=== PATIENT | female | born 1980 | race Two or more races ===

== ENCOUNTER 2018-10-09 10:09 | Inpatient (IN) | payer MEDICAID ==
[2018-09-24 10:05] LABS: APPEARANCE,URINE CLEAR; BILIRUBIN, URINE NEGATIVE (NEGATIVE); COLOR,URINE PALE YELLOW; GLUCOSE, URINE (UA) NEGATIVE (NEGATIVE); KETONES,URINE NEGATIVE (NEGATIVE); LEUKOCYTE ESTERASE ,URINE NEGATIVE (NEGATIVE); NITRITE,URINE NEGATIVE (NEGATIVE); PH,URINE 6.5 (4.5-8.0); PROTEIN,URINE NEGATIVE (NEGATIVE); UROBILINOGEN,URINE NORMAL MG/DL (0.0-1.0)
[2018-09-24 10:12] LABS: BASOPHILS % (AUTO) 2.2 % (0.0-2.0); EOSINOPHILS % (AUTO) 3.1 % (0.0-3.0); HEMATOCRIT 39.8 % (37.0-47.0); LYMPHOCYTES % (AUTO) 31.1 % (20.0-45.0); MEAN CORPUSCULAR VOLUME 92 FL (80-99); MONOCYTES % (AUTO) 18.8 % (1.0-10.0); NEUTROPHILS % (AUTO) 44.9 % (45.0-75.0); PLATELET COUNT 243 K/UL (150-450); RED BLOOD COUNT 4.32 M/UL (4.20-5.40); RED CELL DISTRIBUTION WIDTH 12.8 % (11.6-14.8); WHITE BLOOD COUNT 3.8 K/UL (4.8-10.8)
[2018-09-24 10:24] LABS: ANION GAP 6 mmol/L (5-15); BLOOD UREA NITROGEN 9 mg/dL (7-18); CALCIUM 9.3 MG/DL (8.5-10.1); CARBON DIOXIDE 29 MMOL/L (21-32); CHLORIDE 104 MMOL/L (98-107); CREATININE 0.8 MG/DL (0.55-1.30); POTASSIUM 3.7 MMOL/L (3.5-5.1); SODIUM 139 MMOL/L (136-145)
[2018-09-24 10:27] LABS: INR 1.2 (0.9-1.1)
--- NOTE | 2018-10-08 13:45 | Pre-op HX & Phy Repo 2 SIG ---
DATE OF ADMISSION: 10/09/2018 SCHEDULED FOR SURGERY: October 09, 2018. 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 The patient was initially seen in March 2018 with one month history of a left breast mass. Examination at that time revealed a large mass at 12 o'clock about 3 cm above the nipple and palpable left axillary lymph node. Imaging studies revealed three lesions in the left breast and core biopsy of all three revealed poorly differentiated invasive ductal carcinoma. Core biopsy of the left axillary lymph node revealed metastatic carcinoma. The patient was treated with neoadjuvant chemotherapy with her last treatment September 08, 2018 and is going to undergo mastectomy. Genetic testing has been negative. PAST MEDICAL HISTORY: MEDICATIONS: Compazine, Zofran, stool softeners. ALLERGIES: None. OPERATIONS: None. REVIEW OF SYSTEMS: para 3, 3; having regular menstrual periods PHYSICAL EXAMINATION: GENERAL: The patient is well developed and well nourished. VITAL SIGNS: The patient is 5 feet 3 inches, 167 pounds. HEENT: Within normal limits. LUNGS: Clear. HEART: Regular rhythm. BREASTS: Exam reveals right breast unremarkable. Left breast has a large mass from 10 o' clock to 2 o' clock and there was no longer any palpable axillary lymphadenopathy. ABDOMEN: Soft. PELVIC AND RECTAL: Per primary care physician. EXTREMITIES: Without edema. NEUROLOGIC: Physiologic. IMPRESSION: Multicentric invasive ductal carcinoma, left breast, metastatic to left axillary lymph node. PLAN: Left modified radical mastectomy. DISCUSSION: I have had a full discussion with the patient regarding the nature of her condition, the nature of the surgery, indications, alternatives, options, and risks including bleeding, infection, injury to adjacent structures or organs, neuritis or neuralgia, potential for delayed reconstruction, need for additional treatments based on final pathology, etc. The patient understands and agrees to proceed. Levi Meza M.D. DR: KINZA JOB#: [id number] CC: TERESA
[2018-10-09] VITALS (13 sets, daily range): BP systolic 89–128; BP diastolic 46–71
[~2018-10-09] VITALS: Ht 160 cm; Wt 68.0 kg
[~2018-10-09 10:09] MED LIST: NKM
[2018-10-09] MEDS ORDERED: fentaNYL 100 mcg/2 mL IV ONE (10:50)
[2018-10-09] MEDS ORDERED: Midazolam 2mg/2ml Inj ONE (10:50)
[2018-10-09] MEDS ORDERED: Lidocaine 1% MPF 10mg/ml 5ml ONE (10:53)
[2018-10-09] MEDS ORDERED: Propofol 200mg/20ml IV ONE (10:53)
[2018-10-09] MEDS ORDERED: Bacitracin 50000 Units Vial ONE (11:45)
[2018-10-09] MEDS ORDERED: Lidocaine 1% 10mg/ml/Epi 0.005mg/ml 30ml vial INJ ONE (11:45)
[2018-10-09] MEDS ORDERED: NeoSporin Gu Irrig 1ml Amp IRRIG ONE (11:45)
[2018-10-09] MEDS ORDERED: Bupivacaine w/Epi 0.5% 30ml Vial INJ ONE (11:45)
--- NOTE | 2018-10-09 11:47 | Pre-Procedure Note/Attestation ---
Pre-Procedure Note/Attestation Complete Prior to Procedure Planned Procedure: left Procedure Narrative: left modified radical mastectomy Indications for Procedure Pre-Operative Diagnosis: multicentric invasive ductal carcinoma left breast Attestation I attest that I discussed the nature of the procedure; its benefits; risks and complications; and alternatives (and the risks and benefits of such alternatives ), prior to the procedure, with the patient (or the patient's legal customer relations representative). I attest that, if there was a reasonable possibility of needing a blood transfusion, the patient (or the patient's legal customer relations representative) was given the [facility] standardized written summary, pursuant to the [place] Blood Safety Act ([place] Health and Safety Code # 1645, as amended). I attest that I re-evaluated the patient just prior to the surgery and that there has been no change in the patient's H&P, except as documented below: none Levi Meza MD Oct 09, 2018 11:47
[2018-10-09] MEDS ORDERED: Sterile Water Irrig 1000ml IRRIG ONE (12:00)
[2018-10-09] MEDS ORDERED: LR 1000ml ONE (12:00)
[2018-10-09] MEDS ORDERED: NS Irrig 1000ml ONE (12:00)
[2018-10-09] MEDS ORDERED: Morphine Sulfate 10mg/ml Inj ONE (12:47)
[2018-10-09] MEDS ORDERED: Sodium Chloride 10ml vial INJ ONE (12:47)
[2018-10-09] MEDS ORDERED: Ketorolac 30mg Inj ONE (12:47)
[2018-10-09] MEDS ORDERED: Hydromorphone 0.5mg/0.5ml inj IVP PRN (13:00)
[2018-10-09] MEDS ORDERED: Midazolam 2mg/2ml Inj IVP PRN (13:00)
[2018-10-09] MEDS ORDERED: Meperidine 50mg/ml Inj(FOR RIGORS ONLY) IV PRN (13:00)
[2018-10-09] MEDS ORDERED: Metoclopramide 10mg/2ml Inj IVP PRN (13:00)
[2018-10-09] MEDS ORDERED: LR 1000ml 1,000 ML IVLG SCH (13:00)
[2018-10-09] MEDS ORDERED: DiphenhydrAMINE 50mg/ml Inj IVP PRN (13:00)
[2018-10-09] MEDS ORDERED: Ketorolac 30mg Inj IV PRN (13:00)
--- NOTE | 2018-10-09 13:00 | Anethesia Preoperative Eval ---
Anesthesia Pre-op PMH/ROS General Date of Evaluation: Oct 09, 2018 Time of Evaluation: 11:50 Anesthesiologist: Hans ASA Score: ASA 2 Mallampati Score Class I : Soft palate, uvula, fauces, pillars visible Class II: Soft palate, uvula, fauces visible Class III: Soft palate, base of uvula visible Class IV: Only hard plate visible Mallampati Classification: Class II Surgeon: Susana Diagnosis: L breast CA Surgical Procedure: L modified radical mastectomy Anesthesia History: none Family History: no anesthesia problems Allergies: Coded Allergies: No Known Allergies (Unverified , 10/09/18) Patient NPO?: Yes NPO Date: Oct 08, 2018 NPO Time: 0 Past Medical History Cardiovascular: Denies: HTN, CAD, [place], valve dz, arrhythmia, other Pulmonary: Denies: asthma, COPD, LISS, other Gastrointestinal/Genitourinary: Reports: GERD - mild; Denies: CRI, ESRD, other Neurologic/Psychiatric: Reports: depression/anxiety; Denies: dementia, CVA, TIA, other Endocrine: Denies: DM, hypothyroidism, steroids, other HEENT: Denies: cataract (L), cataract (R), glaucoma, EYAK (L), EYAK (R), other Hematology/Immune: Reports: anemia - mild; Denies: DVT, bleeding disorder, other Musculoskeletal/Integumentary: Denies: OA, RA, DJD, DDD, edema, other PMH Narrative: as above PSxH Narrative: none Anesthesia Pre-op Phys. Exam Physician Exam Last Vital Signs Date Time Temp Pulse Resp B/P (MAP) Pulse Ox O2 Delivery O2 Flow Rate FiO2 10/09/18 10:45 Room Air 10/09/18 10:33 97.2 70 18 111/71 (84) 100 Constitutional: NAD Neurologic: CN 2-12 intact Cardiovascular: RRR, no M/R/G Respiratory: CTA Airway Exam Mallampati Score: Class II Neck: flexible ROM: full Teeth: intact Dentures: no upper, no lower Anesthesia Pre-op A/P Labs see chart Urine Test Test 10/09/18 10:20 Urine HCG, Qualitative Negative (NEGATIVE) Studies Pre-op Studies: EKG - NSR Risk Assessment & Plan Assessment: ASA 2 Plan: GA with LMA PONV preventioo Status Change Before Surgery: No Pre-Antibiotics Drug: Anef 1gr. Given Within 1 Hr of Incision: Yes Time Given: 12:15 Arsen Maxwell MD Oct 09, 2018 13:00
[2018-10-09] MEDS ORDERED: Acetaminophen (Non formulary) 100 ML IV SCH (13:30)
--- NOTE | 2018-10-09 14:08 | Immediate Post-Op Evaluation ---
Immediate Post-Op Evalulation Immediate Post-Op Evalulation Procedure: L breast mastectomy with axillary l/n disection Date of Evaluation: Oct 09, 2018 Time of Evaluation: 14:07 IV Fluids: 1000 Blood Products: none Estimated Blood Loss: 50 Urinary Output: [id number] Blood Pressure Systolic: 98 Blood Pressure Diastolic: 64 Pulse Rate: 70 Respiratory Rate: 20 O2 Sat by Pulse Oximetry: 98 Temperature (Fahrenheit): 97.3 Pain Score (1-10): 2 Nausea: No Vomiting: No Complications none Patient Status: reacts, patent, none Hydration Status: adequate Arsen Maxwell MD Oct 09, 2018 14:08
--- NOTE | 2018-10-09 14:09 | Brief Operative Note ---
Immediate Post Operative Note Operative Note Pre-op Diagnosis: multicentric invasive ductal carcinoma left breast Procedure: left modified radical mastectomy Post-op Diagnosis: same Post-op Diagnosis: same as pre-op Findings: consistent w/pre-op dx studies Surgeon: yoshi Anesthesiologist: gianluca Anesthesia: general Specimen: yes - left breast and axillary contents Complications: none Condition: stable Fluids: see anesthesia record Estimated Blood Loss: minimal Drains: other Implant(s) used?: No Levi Meza MD Oct 09, 2018 14:09
[2018-10-09] MEDS ORDERED: Norco 5mg/325mg tab ORAL PRN (14:15)
[2018-10-09] MEDS ORDERED: HYDROmorphone 1mg/ml Carpuject SUBQ PRN (14:15)
[2018-10-09] MEDS: D5 1/2NS w/KCl 20mEq 1,000 ML IV SCH (16:31)
[2018-10-09] MEDS: ceFAZolin sod 1 GM in D5W 55 ML IV SCH (20:29)
[2018-10-10] VITALS: BP 87/53
--- NOTE | 2018-10-10 00:42 | Operative Note - Dictated ---
SURGEON: Levi Meza M.D. VISCOSITY WORKER: None. ANESTHESIOLOGIST: Arsen Maxwell M.D. TYPE OF ANESTHESIA: General. PREOPERATIVE DIAGNOSIS: Multicentric invasive ductal carcinoma of left breast stage II, status post neoadjuvant chemotherapy. POSTOPERATIVE DIAGNOSIS: Multicentric invasive ductal carcinoma of left breast stage II, status post neoadjuvant chemotherapy. OPERATION PERFORMED: Left modified radical mastectomy. DESCRIPTION OF PROCEDURE: The patient was taken to the operating room and under general anesthesia with sequential compression device stockings in place and having received intravenous antibiotics. The patient was prepped and draped in the usual fashion incorporating the left upper extremity into the field. A transversely oriented Rafael incision was outlined and then flaps dissected superiorly, medially, inferiorly, and laterally. The palpable mass in the superior portion of the breast was not attached to the overlying skin. The breast was resected together with the pectoralis fascia until the axilla was identified. Using the [employer] electrocautery device, an axillary dissection was performed marking the apex with a suture and marking the specimen with sutures medial and superior. The specimen was given off the field and given to the pathologist. The field was copiously irrigated with sterile water and then antibiotic solution. Hemostasis was secured through separate stab incisions inferolaterally. Two 19 mm Rasheed drains were placed, one onto the axilla and one onto the flaps. Both were sutured to the skin with 2-0 silk skin sutures. After ascertaining that hemostasis was secured, the incision was closed with interrupted 2-0 Vicryl subcutaneous deep dermal sutures followed by demario. Dry sterile dressings were applied. Final sponge and needle counts were correct. The patient tolerated the procedure well and left the operating room in good condition. Levi Meza M.D. DR: KEN JOB#: [id number] CC:
[2018-10-10] MEDS: D5 1/2NS w/KCl 20mEq 1,000 ML IV SCH ×2 (02:42→12:27)
[2018-10-10 04:00] VITALS: BP 94/57
[2018-10-10] MEDS: ceFAZolin sod 1 GM in D5W 55 ML IV SCH (04:19)
[2018-10-10 08:00] VITALS: BP 94/57
--- NOTE | 2018-10-10 09:21 | General Progress Note ---
Progress Note Progress Note AVSS Eating and up to bathroom. Moderate pain is controlled Left mastectomy incision clean, dry; JONATHAN 100 + 22 since surgery Imp. Stable Plan: d/c IV fluids ambulate in hallways RN to teach patient care of JONATHAN drains and recording outputs Levi Meza MD Oct 10, 2018 09:21
--- NOTE | 2018-10-10 11:04 | 48 Hour Post Anesthesia Eval ---
Post Anesthesia Evaluation Procedure: L breast mastectomy with axillary l/n disection Date of Evaluation: Oct 10, 2018 Time of Evaluation: 10:05 Blood Pressure Systolic: 97 0: 54 Pulse Rate: 68 Respiratory Rate: 20 Temperature (Fahrenheit): 97.6 O2 Sat by Pulse Oximetry: 98 Airway: patent Nausea: No Vomiting: No Pain Intensity: 2 Hydration Status: adequate Cardiopulmonary Status: stable Mental Status/LOC: patient returned to baseline Follow-up Care/Observations: n/a Post-Anesthesia Complications: none Follow-up care needed: ready to discharge Arsen Maxwell MD Oct 10, 2018 11:04
[2018-10-10 12:00] VITALS: BP 110/67
[2018-10-10 16:00] VITALS: BP 99/67
[2018-10-10 20:00] VITALS: BP 102/69
[2018-10-11] VITALS: BP 101/70
[2018-10-11 04:00] VITALS: BP 102/65
[2018-10-11 08:00] VITALS: BP 102/61
--- NOTE | 2018-10-11 08:51 | General Progress Note ---
Progress Note Progress Note T100 - feels well. Incision healing nicely. JONATHAN 50+33 She has learned to take care of the drains and record outputs Imp. doing well Plan: discharge instructions/limitations/supplies discussed/provided Rx none f/u office 10/16 - call Levi Lopez MD Oct 11, 2018 08:51
[2018-10-11] MEDS ORDERED: NS 275ml ONE (11:29)
[2018-10-11] MEDS ORDERED: Tubing IV Secondary IV ONE (11:29)
--- NOTE | 2018-10-14 07:48 | Discharge Summary ---
Discharge Summary Hospital Course Date of Admission Oct 09, 2018 at 10:10 Date of Discharge Oct 11, 2018 at 11:30 Admitting Diagnosis High-grade invasive ductal carcinoma of the left breast, metastatic to the left axillary lymph node. 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 The patient was initially seen in March 2018 with one month history of a left breast mass. Examination at that time revealed a large mass at 12 o'clock about 3 cm above the nipple and palpable left axillary lymph node. Imaging studies revealed three lesions in the left breast and core biopsy of all three revealed poorly differentiated invasive ductal carcinoma. Core biopsy of the left axillary lymph node revealed metastatic carcinoma. The patient was treated with neoadjuvant chemotherapy with her last treatment September 08, 2018 and was scheduled for mastectomy. Genetic testing has been negative. Procedures s/p 10/09/[address] Meza Left modified radical mastectomy. Hospital Course status post surgery course of recovery uneventful initially IV fluids s/p perioperative antibiotics 2 JONATHAN drain, output clsoely monitored teaching provided regarding care of JONATHAN drains and recording output left mastectomy incision clean dry and intact pain management addressed hemodynamically stable ambulated in hallway tolerated diet , IV fluids discontinued antiemetics were on board as needed voided freely JONATHAN drain output decreasing patient was stable for discharge discharge instructions/limitations/supplies discussed/provided follow up with surgeon 10/16/18 in the office , call office as needed FINAL DIAGNOSIS Multicentric invasive ductal carcinoma of left breast stage II, status post neoadjuvant chemotherapy s/p Left modified radical mastectomy. Discharge Medications Continued Medications: No Known Medications* (NKM - No Known Medications*) . 0 ., 0 Refills (This prescription has been renewed) Discharge Condition Upon Discharge: stable Discharge Disposition Patient was discharged to Home (01) Discharge Instructions Discharge Instructions Special Instructions I have been assigned to complete a D/C Summary on this account. I was not involved in the patient management Marissa Tirado NP Oct 14, 2018 07:48
== END 2018-10-11 11:30 | disposition home or self-care (01) | DRG 362 ==
LOC: SUR 10:09 → 3E 10:10 → SUR 15:05 → 3E 15:05
PROC: 07B60ZX Excision of Left Axillary Lymphatic, Open Approach, Diagnostic (ICD-10-PCS; 2018-10-09)
PROC: 0HTU0ZZ Resection of Left Breast, Open Approach (ICD-10-PCS; principal; 2018-10-09 11:30)
DX: C50.812 Malignant neoplasm of overlapping sites of left female breast (principal); C77.3 Secondary and unspecified malignant neoplasm of axilla and upper limb lymph nodes
CPT/HCPCS: 36415; 80048; 81001; 81025; 85025; 85610; 85730; 87081; 94003; 94150; J2250; J2405; J2765